=== PATIENT | male | born 1995 | race Caucasian/White ===

== ENCOUNTER 2025-02-02 16:49 | Emergency (ER) | payer OTHER, SELFPAY ==
[2025-02-02 16:49] VITALS: BMI 32.3
[2025-02-02 16:55] VITALS: BP 145/98
[2025-02-02 17:18] LABS: % Basophils 0.9 % (0-2); % Eosinophils 4.9 % (0-6); % Immature Granulocytes 0.2 % (0-0.5); % Lymphocytes 26.6 % (20.5-51.1); % Neutrophils 58.4 % (42.2-75.2); Absolute Basophils 0.1 10^3/uL (0-0.2); Absolute Eosinophils 0.4 10^3/uL (0-0.7); Absolute Lymphocytes 2.3 10^3/uL (1.2-3.4); Absolute Monocytes 0.8 10^3/uL (0.1-0.6); Absolute Neutrophils 5.1 10^3/uL (1.4-6.5); Hematocrit 45.4 % (39.0-52.0); Hemoglobin 16.8 g/dL (13.0-18.0); Mean Corpuscular Hgb 33.8 pg (27.0-31.0); Mean Corpuscular Volume 91.3 fL (80.0-94.0); Nucleated Red Blood Cells % 0 % (-); Platelet Count 208 10^3/uL (130-400); Red Blood Cell Count 4.97 10^6/uL (4.70-6.10); Red Cell Dist. Width 12.3 % (11.5-14.5); White Blood Cell Count 8.7 10^3/uL (4.8-10.8)
[2025-02-02 17:28] LABS: INR 0.98; PT 13.5 Sec (11.4-14.6)
[2025-02-02 17:30] LABS: ALT (SGPT) 164 U/L (0-50); AST (SGOT) 90 U/L (17-59); Albumin 4.9 g/dl (3.5-5.0); Alkaline Phosphatase 50 U/L (38-126); Blood Urea Nitrogen 12 mg/dl (9-20); Calcium 9.8 mg/dl (8.4-10.2); Carbon Dioxide 31 mmol/L (22-30); Chloride 100 mmol/L (98-107); Glucose 96 mg/dl (70-99); Potassium 4.2 mmol/L (3.5-5.1); Sodium 139 mmol/L (135-145); Total Bilirubin 2.1 mg/dl (0.2-1.3); Total Protein 7.5 g/dl (6.3-8.2); eGFR > 60.00
[2025-02-02 17:41] LABS: Troponin I < 0.012 ng/ml
[2025-02-02 19:15] VITALS: BP 174/99
[2025-02-02 19:27] VITALS: BP 144/98
--- NOTE | 2025-02-02 19:39 | ED.GENMED ---
History of Present Illness
General
Chief Complaint: Chest Pain
Time Seen by Provider: 02/02/25 19:00
History of Present Illness
History of Present Illness:
29-year-old male without significant past medical history presenting for left-sided chest pain. Notes that he had the chest pain this morning, described as a squeezing pain. Reports the pain is sternal, goes to the left breast. Denies any
exacerbating features or exertional component. Symptoms improved, however returned again around 4 PM. Notes that the pain is still present. Denies associated difficulty breathing. Denies any cardiac history or family history of cardiac disease.
Denies any history of blood clot, recent surgery, recent travel. Denies abdominal pain, nausea, vomiting. Denies fever or cough. Denies additional acute medical complaints
Phy Exam
Physical Exam
Physical Exam:
General: Well-appearing, no clinical signs of dehydration
HEENT: protecting airway
Neck: appears supple
CV: Normal heart rate, regular rhythm
Resp: No accessory muscle use, no increased work of breathing, lungs clear to auscultation bilaterally
Abd: Soft and non-distended, no tenderness to palpation
Extremities: No deformities, no swelling, no erythema
Neuro: alert, no focal neurologic deficit
: deferred
Rectal: deferred
Psych: Normal affect
Skin: Intact
Scores
Heart Score for Chest Pain Patients
STEMI patient?: No
History: Slightly or Non-Suspicious
ECG: Normal
Age: </= 45 years
Risk Factors: No Risk Factors
Troponin: </= Normal Limit
Heart Score for Chest Pain Patients: 0
Heart Score Risk: 2.5% MACE over next 6 weeks
Course
Orders/Labs/Results
Orders:
Orders
02/02/25 16:50
Electrocardiogram (*1) Urgent
Reason for Study: Chest Pain
EKG- Treatment ONCE
02/02/25 17:02
Complete Blood Count/With Diff Urgent
Comprehensive Metabolic Panel Urgent
PT/INR [Prothrombin Time] Urgent
Troponin I Urgent
Abnormal Lab Results
02/02/25
17:02
MCH 33.8 H pg
(27.0-31.0)
Absolute Monos (auto) 0.8 H 10^3/uL
(0.1-0.6)
Carbon Dioxide 31 H mmol/L
(22-30)
Total Bilirubin 2.1 H mg/dl
(0.2-1.3)
AST 90 H U/L
(17-59)
ALT 164 H U/L
(0-50)
02/02/25 17:02
02/02/25 17:02
Vital Signs
Initial and Last Documented VS:
Initial Vital Signs
Temp Pulse Resp BP Pulse Ox
98.6 F 86 16 145/98 98
02/02/25 16:55 02/02/25 16:55 02/02/25 16:55 02/02/25 16:55 02/02/25 16:55
Last Documented Vital Signs
Temp Pulse Resp BP Pulse Ox
98.6 F 70 16 174/99 99
02/02/25 16:55 02/02/25 18:00 02/02/25 18:00 02/02/25 19:15 02/02/25 19:15
MDM/Problems Addressed
MDM/Problems Addressed:
29-year-old male without significant past medical history presenting to the emergency department for chest pain. Vital signs are normal.
On exam patient is resting comfortably, no acute distress or discomfort. Unremarkable cardiac and pulmonary exam. EKG obtained on patient's arrival, nonischemic. Patient with no significant coronary risk factors, overall low suspicion for ACS.
Patient had laboratory analysis obtained prior to my assessment, negative troponin. At this time low risk by heart score. Patient is PERC negative without concern for PE. No respiratory symptoms, lungs clear to auscultation, without concern for
pneumothorax. Ultimately suspect possible musculoskeletal component to symptoms. On screening laboratory analysis, patient was noted to have mild elevation of liver enzymes. No reproducible tenderness to the right upper quadrant, or present
concern for gallbladder or liver pathology. Feel stable for discharge, however with outpatient primary care follow-up. Explained that he will require repeat liver enzyme testing in the next 2 weeks. Return precautions discussed and patient
verbalized understanding
*EKG
Interpreted by ED Provider?: Yes
EKG Intrepretation Date: 02/02/25
EKG Intrepretation Time: 19:41
Interpretation: normal
Heart Rate: 74
Rate: normal
Rhythm: sinus
[place]: normal axis
Interval: normal interval
QRS Pattern: normal QRS
Ischemia: no ischemia
*Critical Care Note
Total Time (30-74mins, 75-104mins- exclusive of procedures): Not Applicable
ED Attending Note
-
Portions of this chart may have been created with voice recognition software.� Occasional wrong word or��sound alike� substitutions may have occurred due to the inherent limitations of voice recognition software.
Discharge Plan
Departure
Patient Disposition: Home (Routine Discharge)
Date of Disposition: 02/02/25
Time of Disposition: 19:48
Patient with high blood pressure during this ER visit?: Yes
Condition: Good
Discharge Problem:
Chest pain
Instructions: Chest pain - Discharge instructions, BLOOD PRESSURE
Referrals:
Jean-Claude Murray MD [Active] -
Activity Restrictions/Additional Instructions:
You were seen in the emergency department for chest pain
You were found to have a normal EKG and laboratory analysis. You were found to have slightly elevated liver enzymes, which should be rechecked in a few weeks with your primary care doctor. If symptoms are persisting, please follow-up with a
waterproofer.
Please follow-up closely with your primary care physician.
Return to the emergency department for any worsening of your symptoms, or any development of chest pain, difficulty breathing, abdominal pain with persistent vomiting and inability to tolerate food or liquid by mouth (concern for dehydration),
weakness, headache or confusion, fever greater than 100.4, or any additional symptoms that are concerning to you.
Thank you for choosing [facility].
Interventions
Interventions:
*Risk Screen - Suicide Last Done: 02/02/25 16:55
*General Assessment Last Done: 02/02/25 16:55
*Neglect/Abuse Screening Last Done: 02/02/25 16:55
*ED- Fall Risk Assessment Last Done: 02/02/25 16:55
*ED COVID-19 Vaccine History Last Done: 02/02/25 16:55
ED- Cardiac Assessment Last Done: 02/02/25 19:08
Discharge Date and Time
Print Language: GREENLANDIC
== END 2025-02-02 20:05 | disposition home or self-care (01) ==
LOC: EMR 16:49
PROVIDERS: EMERGENCY PHYSICIAN Student in an Organized Health Care Education/Training Program
DX: R07.9 Chest pain, unspecified (principal); R74.8 Abnormal levels of other serum enzymes
CPT/HCPCS: 99284; 80053; 84484; 85025; 85610; 93005